=== PATIENT | male | born 1975 ===

== ENCOUNTER 2017-10-18 20:28 | Inpatient (IN) | payer OTHER ==
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
[2017-10-18 20:57] VITALS: BMI 37.5
[2017-10-18] MEDS ORDERED: Oxycodone/Acetaminophen 5/325 mg Tab PO PRN (21:21)
[2017-10-19] MEDS: diltiaZEM 300 mg/24 Hours CD Cap PO SCH (09:03)
[2017-10-19] MEDS: Enoxaparin 40 mg Syringe SC SCH (09:04)
[2017-10-19] MEDS: Docusate-Senna 50 mg-8.6 mg Tab PO SCH ×2 (09:05→17:12)
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
--- NOTE | 2017-10-19 20:30 | PCM.OPOC ---
Physiatry Overall Plan of Care - Overall Plan of Care Estimated Length of Stay in Weeks: 2 Rehab Impairment: Mobility, Gait, Balance, Coordination Etiologic Diagnosis: Hip/Knee Surgery Rehab/Medical Prognosis: Fair - Anticipated Interventions Physical Therapy:: Yes Occupational Therapy:: Yes Recreational Therapy:: Yes - Therapy Goals Bed Mobility: Independent Ambulation: Independent Functional Positional Changes:: Independent - Functional Outcomes Functional Outcomes: fair - Discharge Plan Identification of Barriers to Discharge: Home Situation Discharge Destination: Home
[2017-10-20] MEDS: Enoxaparin 40 mg Syringe SC SCH (09:12)
[2017-10-20] MEDS: diltiaZEM 300 mg/24 Hours CD Cap PO SCH (09:13)
[2017-10-20] MEDS: Docusate-Senna 50 mg-8.6 mg Tab PO SCH ×2 (09:14→17:41)
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
[2017-10-20] MEDS ORDERED: Oxycodone/Acetaminophen 5/325 mg Tab PO PRN (15:25)
[2017-10-21] MEDS: diltiaZEM 300 mg/24 Hours CD Cap PO SCH (08:23)
[2017-10-21] MEDS: Enoxaparin 40 mg Syringe SC SCH (08:25)
[2017-10-21] MEDS: Docusate-Senna 50 mg-8.6 mg Tab PO SCH ×2 (09:15→17:00)
[2017-10-22] MEDS: Enoxaparin 40 mg Syringe SC SCH (09:12)
[2017-10-22] MEDS: diltiaZEM 300 mg/24 Hours CD Cap PO SCH (09:13)
[2017-10-22] MEDS: Docusate-Senna 50 mg-8.6 mg Tab PO SCH ×2 (09:14→18:09)
[2017-10-23 06:07] LABS: HEMATOCRIT 44.7 % (35.0-51.0); MEAN CORPUSCULAR HEMOGLOBIN 31.6 pg (27.0-31.0); MEAN CORPUSCULAR HGB CONC 33.9 g/dL (33.0-37.0); RED CELL DISTRIBUTION WIDTH 13.6 % (11.5-14.5); WHITE BLOOD COUNT 7.3 K/uL (4.8-10.8)
[2017-10-23 06:20] LABS: BLOOD UREA NITROGEN 10 mg/dl (9-20); CALCIUM 8.8 mg/dL (8.4-10.2); CARBON DIOXIDE 28 mmol/L (22-30); CHLORIDE 107 mmol/L (98-107); GFR AFRICAN-AMERICAN > 60; GLUCOSE,RANDOM 89 mg/dL (75-110); POTASSIUM 4.2 MMOL/L (3.6-5.0); SODIUM 141 mmol/l (132-148)
[2017-10-23] MEDS: diltiaZEM 300 mg/24 Hours CD Cap PO SCH (08:07)
[2017-10-23] MEDS: Docusate-Senna 50 mg-8.6 mg Tab PO SCH ×2 (08:10→17:32)
[2017-10-23] MEDS: Enoxaparin 40 mg Syringe SC SCH (09:39)
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
[2017-10-23 19:52] VITALS: RESP 20
[2017-10-24] MEDS: Enoxaparin 40 mg Syringe SC SCH (08:25)
[2017-10-24] MEDS: Docusate-Senna 50 mg-8.6 mg Tab PO SCH ×2 (08:26→16:14)
[2017-10-24] MEDS: diltiaZEM 300 mg/24 Hours CD Cap PO SCH (08:28)
[2017-10-25] MEDS: Enoxaparin 40 mg Syringe SC SCH (08:13)
[2017-10-25] MEDS: diltiaZEM 300 mg/24 Hours CD Cap PO SCH (08:13)
[2017-10-25] MEDS: Docusate-Senna 50 mg-8.6 mg Tab PO SCH ×2 (08:15→17:13)
--- NOTE | 2017-10-25 12:07 | CP.PCM.PN ---
Subjective - Date & Time of Evaluation Date of Evaluation: 10/25/17 Time of Evaluation: 12:04 - Subjective Subjective: Patient without complaints. For d/c home tomorrow Objective - Vital Signs/Intake and Output Vital Signs (last 24 hours): Temp Pulse Resp BP Pulse Ox 98.2 F 74 20 121/64 98 10/25/17 09:00 10/25/17 09:00 10/25/17 09:00 10/25/17 09:00 10/25/17 08:48 - Medications Medications: Current Medications Acetaminophen (Tylenol 325mg Tab) 650 mg PO Q4 PRN PRN Reason: Pain, Mild (1-3) Amiodarone HCl (Cordarone) 200 mg PO BID [facility] Last Admin: 10/25/17 08:15 Dose: 200 mg Aspirin (Ecotrin) 81 mg PO DAILY [facility] Last Admin: 10/25/17 08:15 Dose: 81 mg Diltiazem HCl (Cardizem Cd) 300 mg PO DAILY [facility] Last Admin: 10/25/17 08:13 Dose: 300 mg Enoxaparin Sodium (Lovenox) 40 mg SC DAILY [facility] PRN Reason: Protocol Last Admin: 10/25/17 08:13 Dose: 40 mg Famotidine (Pepcid) 20 mg PO DAILY [facility] Last Admin: 10/25/17 08:15 Dose: 20 mg Metoprolol Tartrate (Lopressor) 25 mg PO BID [facility] Last Admin: 10/25/17 08:14 Dose: 25 mg Senna/Docusate Sodium (Senokot S 50 Mg-8.6 Mg) 1 tab PO BID [facility] Last Admin: 10/25/17 08:15 Dose: 1 tab - Labs Labs: 10/23/17 05:20 10/23/17 05:20 - Extremities Exam Additional comments: Dressing changed. Incision healing well, small scab to open site, no drainage or erythema. Calves soft NT neg homans +ROM ankle/toes, sensation intact Assessment and Plan (1) Traumatic rupture of right quadriceps tendon Assessment & Plan: 3 weeks s/p right quad tendon repair I&D cont foot flat 10% WB knee immob at all times orthopedically stable f/u in office Dr. Mast 7-10 days call for appt [phone] d/w Dr. Mast, agrees with above Status: Acute (2) Open patellar fracture Status: Acute
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
--- NOTE | 2017-10-25 21:34 | PSY.TMCNF ---
Nursing - Vital Signs Vital Signs (Last 8 hours): Vital Signs 10/25/17 10/25/17 10/25/17 14:30 17:13 17:14 Temperature Pulse Rate 70 92 H 92 H Respiratory Rate Blood Pressure 124/66 114/58 L 114/58 L O2 Sat by Pulse 98 Oximetry 10/25/17 20:04 Temperature 98.0 F Pulse Rate 70 Respiratory 20 Rate Blood Pressure 124/66 O2 Sat by Pulse 98 Oximetry Pain: 2 - Precautions: Precautions: Fall Prevention - Medications/Other Issues Comment: To follow as per nutrition protocol - Consults Comment: Dr. Valles - Skin Incision Site: right knee Dressing Status: Clean, Dry, Intact Incision: Healing Well, [place] Intact Incision Line Treatment: [place] removed by BERYL Ovalle of Dr. Mast. Covered w/ OLU bandage. Knee immobilizer in place - Toileting Toileting: Modified Independent - Bladder Management Bladder Pattern: Normal Voiding Method: Toilet Bladder Management: Modified Independent Frequency of Accidents: 0 - Bowel Management Bowel Pattern: Normal Bowel Management: Modified Independent Frequency of Accidents: 0 - Transfers Transfers: Modified Independent - ADL's ADL's: Modified Independent - Patient/Family Teaching Comments: Care post ORIF , TTWB and safety precautions - Goals/Time Frame Comments: Per multidisciplinary care plans and goals - Provider Provider: Tiffanie ALONZO RN CRRN Physical Therapy - Bed Mobility Bed Mobility: Modified Independent - Transfers Wheelchair to Mat: Modified Independent Sit to Stand: Modified Independent - Ambulation Level of Assistance: Modified Independent Distance (ft.): 400 Assistive Devices: Crutches - Stair Negotiation Stairs: Level of Assistance: Modified Independent, Supervision Number of Stairs: 6 Stairs: Assistive Devices: Left Handrail, Crutches - Standing Balance Static Stand: Modified [place] with assistive device Dynamic Stand: Supervision - Pain Pain (assessed during therapy session): 3 Management Techniques: Medication, Relaxation Techniques - Insight/Carryover Insight/Carryover: Good - Patient/Family Education Comment: Provided pt with HEP for BLE ther ex - Assessment/Plan Assessment: Pt is agreeable to participate in 1:1 and group recreation therapy sessions. Pt has participated in bingo task with peers and is oriented to problem solving/strategy leisure tasks. Pt is mod I-independent with all leisure tasks. Pt presented with [employer] puzzles and completes puzzles at expert level during his free time. Pt's mood is stable-positive and is agreeable to participate in sessions to distract pt from pain. - Goals Timeframe: 1 session Goals: Mod I for bed mobility, transfers, gait, and stairs - Provider Therapist: Madelin Juarez PT DPT License Number: [id number] Occupational Therapy - Arousal/Attention/Orientation Patient Orientation: Person, Place, Time - ADL/IADL Self Feeding: Independent Grooming: Modified Independent Dressing-Upper Extremity: Modified Independent Dressing-Lower Extremity: Modified Independent, Supervision Homemaking: Modified Independent, Supervision Comment: bathing : TBA when medical clearanec received - Sitting Balance Static Sitting: Independent without upper extremity support Dynamic Sitting: Reaches across midline, Reaches out of base of support, Reaches within base of support Comment: unsupported - Transfers Wheelchair to Bed Transfers: Modified Independent, Supervision Toilet Transfers: Modified Independent, Supervision Comment: -with B axillary cruutches. -shower transfers to be assessed when medically cleared by ortho - Wheelchair Management Level of Assistance: Modified Independent Distance (ft.): 150 - Upper Extremity Status Right Upper Extremity Comment: AROM is WNLS, strength 5/5 Left Upper Extremity Comment: AROM is WNLS, stength 5/5 - Pain Pain (assessed during therapy session): 3 Alleviating Techniques: Medication, Relaxation Techniques - Insight/Carryover Insight/Carryover: Good - Patient/Family Education Comment: Provided pt with HEP for BLE ther ex - Assessment/Plan Assessment: Pt is agreeable to participate in 1:1 and group recreation therapy sessions. Pt has participated in bingo task with peers and is oriented to problem solving/strategy leisure tasks. Pt is mod I-independent with all leisure tasks. Pt presented with sudoku puzzles and completes puzzles at expert level during his free time. Pt's mood is stable-positive and is agreeable to participate in sessions to distract pt from pain. - Goals Timeframe: 1 session Goals: Mod I for bed mobility, transfers, gait, and stairs - Provider Therapist: Lizz Meraz, OTR/L Speech Therapy - Plan Assessment: Pt is agreeable to participate in 1:1 and group recreation therapy sessions. Pt has participated in bingo task with peers and is oriented to problem solving/strategy leisure tasks. Pt is mod I-independent with all leisure tasks. Pt presented with sudoku puzzles and completes puzzles at expert level during his free time. Pt's mood is stable-positive and is agreeable to participate in sessions to distract pt from pain. Recreational Therapy - Participation Participation: Participates in Individual and/or Group Sessions - Attendance Attendance: Daily - Activities Leisure Activities: Puzzles - Socialization Level of Socialization: Initiates/interacts freely with care givers and peer - Diversional Time Diversional Time: sudoku puzzles, watching television - Assessment Assessment/Plan: Pt is agreeable to participate in 1:1 and group recreation therapy sessions. Pt has participated in bingo task with peers and is oriented to problem solving/strategy leisure tasks. Pt is mod I-independent with all leisure tasks. Pt presented with sudoku puzzles and completes puzzles at expert level during his free time. Pt's mood is stable-positive and is agreeable to participate in sessions to distract pt from pain. Problems Currently Limiting Participation: pain, decrease leisure awareness level Goals and Time Frame: Pt will be encouraged to participate in 1:1 and group recreation therapy sessions 3-5x week to improve leisure awareness level, arousal level, and to distract pt from pain. - Provider Therapist: Renetta De La Vega, HOME ECONOMICS EXPERT #[id number] Nutrition - Current Diet Current Diet/ Supplement/ Feedings: low fat/low cholesterol - Appetite Percent Meal Consumed: 75-100% - Comments Comments: Care post ORIF , TTWB and safety precautions - Assessment/Goals/Time Frame Assessment/Goals/Time Frame: To follow as per nutrition protocol - Provider Provider: Bernie Rea RD Case Management - Psychosocial Assessment Support Systems: Brother Josiah Cooney [phone]. Lives in basement apt and brother resides on [address]st level Psychological Interventions/Needs: Pt is alert and oriented x3 Discharge Concerns: Pt remains NWB and has stairs to negotiate Patient/Family Meeting: CM met with pt and rehab team Intervention/Goal/Outcome:: 1. LAD per [employer] ins is 10/25/17 Pt for d/c 10/26 transported home with brother after 1pm 2. Crutches ordered from [facility] and set to be delivered today 3. Provided outpatient physical therapy Rx as pt reports he will go to PT clinic in [place] where is sibling went; Pt will also follow up with PMD which he will obtain the name from sibling. GOAL : Modified independent overall - Discharge Plan Discharge Plan: Outpatient rehab - Provider Provider: ARDEN Weinstein, PIPE FINISHER License Number: [id number] Rehabilitation Plan - Treatment Plan Treatment Plan: Physical Therapy, Occupational Therapy, Dietary, Patient/Family Education - Recommendation Recommendation: Physical Therapy, Occupational Therapy, Dietary, Patient/Family Education [X]: Wound Care - Discharge Plan Discharge to: Home (Goldy villanueva)
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
[2017-10-26 08:42] VITALS: BP 132/80; PULSE 65; TEMP 98.4; O2SAT 99
[2017-10-26] MEDS: Enoxaparin 40 mg Syringe SC SCH (09:00)
[2017-10-26] MEDS: diltiaZEM 300 mg/24 Hours CD Cap PO SCH (09:01)
[2017-10-26] MEDS: Docusate-Senna 50 mg-8.6 mg Tab PO SCH (09:02)
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
== END 2017-10-26 15:15 | disposition home or self-care (01) | DRG 946 ==
PROVIDERS: ADMIT Internal Medicine; ATTEND Internal Medicine
PROC: F08Z1FZ Dressing Techniques Treatment using Assistive, Adaptive, Supportive or Protective Equipment (ICD-10-PCS; principal; 2017-10-18)
PROC: F07Z9FZ Gait Training/Functional Ambulation Treatment using Assistive, Adaptive, Supportive or Protective Equipment (ICD-10-PCS; 2017-10-18)
PROC: F07L6ZZ Therapeutic Exercise Treatment of Musculoskeletal System - Lower Back / Lower Extremity (ICD-10-PCS; 2017-10-18)
DX: S76.111D Strain of right quadriceps muscle, fascia and tendon, subsequent encounter (principal); I48.91 Unspecified atrial fibrillation; S82.001D Unspecified fracture of right patella, subsequent encounter for closed fracture with routine healing; V89.2XXD Person injured in unspecified motor-vehicle accident, traffic, subsequent encounter; F17.210 Nicotine dependence, cigarettes, uncomplicated